=== PATIENT | female | born 1945 | race Two or more races ===

== ENCOUNTER 2023-11-02 11:20 | Emergency (ER) | payer OTHER ==
[~2023-11-02] VITALS: Ht 121.9 cm; Wt 67.1 kg
[2023-11-02] MEDS ORDERED: METFORMIN HCL500 M3 (12:14)
[2023-11-02] MEDS ORDERED: NORVASC10 MG PO (12:15)
[2023-11-02] MEDS ORDERED: KETOROLAC TROMETHAMINE 30 MG VIAL IM STA (13:43)
[2023-11-02] MEDS ORDERED: MECLIZINE HCL 25 MG TABLET PO STA (13:43)
== END 2023-11-02 14:47 | disposition home or self-care (01) ==
LOC: ER 11:21
DX: R42 Dizziness and giddiness (principal); I10 Essential (primary) hypertension
CPT/HCPCS: 93005; 96372; 99282; J1885